=== PATIENT | female | born 1995 | race Caucasian/White ===

== ENCOUNTER 2018-07-02 17:32 | Emergency (ER) | payer SELFPAY ==
[~2018-07-02] VITALS: Ht 152.4 cm; Wt 52.6 kg
[2018-07-02 17:40] VITALS: Ht 152.4 cm; Wt 52.6 kg
[2018-07-02 19:41] VITALS: BP 100/75
== END 2018-07-02 19:41 | disposition home or self-care (01) ==
LOC: ED 17:32
DX: R19.04 Left lower quadrant abdominal swelling, mass and lump (principal); Z98.890 Other specified postprocedural states